=== PATIENT | female | born 2000 | race Two or more races ===

== ENCOUNTER 2019-01-18 18:00 | Emergency (ER) | payer MEDICAID ==
[~2019-01-18] VITALS: Ht 170.2 cm; Wt 97.5 kg
[~2019-01-18 18:00] MED LIST: IBUPROFEN400 MG ORAL; IBUPROFEN600 MG ORAL; NKM
[2019-01-18 18:52] LABS: APPEARANCE,URINE CLEAR; BILIRUBIN, URINE NEGATIVE (NEGATIVE); GLUCOSE, URINE (UA) NEGATIVE (NEGATIVE); KETONES,URINE 1+ (NEGATIVE); LEUKOCYTE ESTERASE ,URINE 3+ (NEGATIVE); NITRITE,URINE NEGATIVE (NEGATIVE); PH,URINE 7 (4.5-8.0); PROTEIN,URINE 1+ (NEGATIVE); UROBILINOGEN,URINE 1 MG/DL (0.0-1.0)
[2019-01-18 18:59] LABS: COLOR,URINE YELLOW
--- NOTE | 2019-01-18 19:09 | Emergency Room Report ---
History of Present Illness General Chief Complaint: Abdominal Pain Source: Patient (Yvette Rodríguez) Present Illness HPI 19-year-old female with no significant past medical history complaining of 2 days of epigastric abdominal pain and 2 bouts of nonbloody emesis. Patient reports that her symptoms started after eating lasagna from a restaurant. Patient denies any bloody emesis, diarrhea, blood in stool. Her last menstrual period was a week ago denies . Denies dysuria, urinary frequency, chest pain, shortness of breath, palpitation, and all other associated symptoms , been able to take oral hydration, denies alcohol intake, smoking, has not taken any medication for alleviating symptoms. Been able to eat without problem. (Yvette oRdríguez) Allergies: Coded Allergies: No Known Allergies (Unverified , 04/29/16) Patient History Past Medical History: see triage record Past Surgical History: unable to obtain Pertinent Family History: none Last Menstrual Period: 12/29/2018 Now: No Immunizations: UTD Reviewed Nursing Documentation: PMH: Agreed; PSxH: Agreed (Yvette Rodríguez) Nursing Documentation-PMH Past Medical History: No Stated History (Yvette Rodríguez) Review of Systems All Other Systems: negative except mentioned in HPI (Yvette Rodríguez) Physical Exam Vital Signs Date Time Temp Pulse Resp B/P (MAP) Pulse Ox O2 Delivery O2 Flow Rate FiO2 01/18/19 18:15 99.3 108 19 131/78 (95) 99 Room Air Sp02 EP Interpretation: reviewed, normal General Appearance: normal inspection, well appearing, no apparent distress Head: normocephalic, atraumatic Eyes: bilateral eye normal inspection, bilateral eye PERRL ENT: normal ENT inspection, hearing grossly normal, normal pharynx Neck: normal inspection, full range of motion, supple, thyroid normal Respiratory: normal inspection, chest non-tender, lungs clear, normal breath sounds, no rhonchi, no wheezing Cardiovascular #1: normal inspection, regular rate, rhythm, no edema, no murmur Gastrointestinal: normal inspection, non tender, soft, no mass, no bruit, no guarding, other - Negative McBurney's and Rovsing Rectal: deferred Genitourinary: no CVA tenderness Musculoskeletal: normal inspection, back normal Neurologic: normal inspection, alert, oriented x3 Psychiatric: normal inspection, judgement/insight normal Skin: no rash, normal turgor Lymphatic: normal inspection, no adenopathy (Yvette Rodríguez) Medical Decision Making PA Attestation Diagnosis and treatment plans were reviewed and discussed with my supervising physician Dr. Ash (Yvette Rodríguez) Medicare Attestation I discussed the care with Yvette OH on 01/18/2019. I agree with the findings and plan as documented in the note. Anne OH discussed abdominal precautions with the patient. (Festus Ash M.D.) Diagnostic Impression: Primary Impression: UTI (urinary tract infection) Additional Impression: Acute gastroenteritis ER Course 19-year-old female with no significant past medical history complaining of 2 days of epigastric abdominal pain and 2 bouts of nonbloody emesis. Patient reports that her symptoms started after eating lasagna from a restaurant. Patient denies any bloody emesis, diarrhea, blood in stool. Her last menstrual period was a week ago denies . Denies dysuria, urinary frequency, chest pain, shortness of breath, palpitation, and all other associated symptoms , been able to take oral hydration, denies alcohol intake, smoking, has not taken any medication for alleviating symptoms. Been able to eat without problem. Ddx considered but are not limited to: UTI, pylonephritis, urinary incontinence , prolapsed bladder, appendicitis, gastroenteritis Vital signs: are WNL, pt. is afebrile H&PE are most consistent with: UTI, acute gastroenteritis ORDERS: UA, urine , Zofran, Macrobid ED INTERVENTIONS: None required at this time. DISCHARGE: At this time pt. is stable for d/c to home. Will provide printed patient care instructions, and any necessary prescriptions. Care plan and follow up instructions have been discussed with the patient prior to discharge. I advised the patient to increase oral hydration and keep a BRAT diet avoiding eating red meat, spicy foods, dairy products. Also follow-up with a primary care provider at this time no more indication for further assessment of the emergency room Leukocytes in UA, white blood cells in urine (Yvette Rodríguez) Last Vital Signs Date Time Temp Pulse Resp B/P (MAP) Pulse Ox O2 Delivery O2 Flow Rate FiO2 01/18/19 18:15 99.3 108 19 131/78 (95) 99 Room Air (Yvette Rodríguez) Disposition: HOME, SELF-CARE Condition: Stable Scripts Nitrofurantoin Monohyd/M-Cryst* (MACROBID 100 MG*) 100 Mg Capsule 100 MG ORAL EVERY 12 HOURS for 7 Days, #14 CAP Prov: Yvette Rodríguez 01/18/19 Ondansetron (Zofran) 4 Mg Tablet 4 MG ORAL Q6H PRN for Nausea & Vomiting, #12 TAB Prov: Yvette Rodríguez 01/18/19 Patient Instructions: Urinary Tract Infection, [id number], Viral Gastroenteritis, Adult Additional Instructions: Take medication as directed follow-up with your primary care provider avoid eating spicy and acidic food, eat bananas, rice, applesauce, piece of toast and avoid dairy products and red meat. Increase fluid intake. Yvette Rodríguez Jan 18, 2019 19:09 Festus Ash M.D. Jan 19, 2019 11:26
[2019-01-18] MEDS ORDERED: NITROFURANTOIN100 M2 ORAL (19:10)
[2019-01-18] MEDS ORDERED: ZOFRAN4 M1 ORAL (19:10)
[2019-01-18 19:17] VITALS: BP 131/78
--- NOTE | 2019-01-18 19:20 | NUR ---
ER DISCHARGE NOTE: Patient is cleared to be discharged per ERMD, pt is aox4, on room air, with stable vital signs. pt was given dc and prescription instructions, pt was able to verbalize understanding pt is able to ambulate with steady gait. pt took all belongings.
[2019-01-18 19:26] VITALS: BP 131/78
== END 2019-01-18 19:22 | disposition home or self-care (01) ==
LOC: EMR 18:30
DX: N39.0 Urinary tract infection, site not specified (principal); K52.9 Noninfective gastroenteritis and colitis, unspecified
CPT/HCPCS: 81001; 81025; 99283

== ENCOUNTER 2019-01-23 20:44 | Emergency (ER) | payer MEDICAID ==
[~2019-01-23] VITALS: Ht 170.2 cm; Wt 97.5 kg
[~2019-01-23 20:44] MED LIST changes: +NITROFURANTOIN100 M2 ORAL; +ZOFRAN4 M1 ORAL
[2019-01-23 21:09] VITALS: BP 111/69
--- NOTE | 2019-01-23 21:09 | NUR ---
ER Nurse Note: Pt came from home c/o n/v/d since 01/18. Pt stated she at [facility] for UTI and stomach infection and taking macrobid. Pt stated antibiotics and noticed diarrhea ever since. Pt a&ox4, VSS, no signs of distress. Will continue to montior.
[2019-01-23] MEDS ORDERED: Ketorolac 30mg Inj IV ONE (21:15)
--- NOTE | 2019-01-23 21:16 | Emergency Room Report ---
History of Present Illness General Chief Complaint: Nausea, Vomiting, and Diarrhea Source: Patient Present Illness HPI This is a 19-year-old female with no past medical history. She presents with chief complaint abdominal pain with nausea vomiting diarrhea. Onset for the last 5 days now. She was here 5 days ago. Urine showed possible urinary tract infection. Patient was given Zofran and Macrobid. Symptoms not helping. She has had persistent nausea vomiting and diarrhea. Pain is crampy in nature. 7 out of 10. Vomiting is nonbloody nonbilious. Diarrhea is watery. No fever chills. Weakness and dizziness with standing. Allergies: Coded Allergies: No Known Allergies (Unverified , 04/29/16) Patient History Past Medical History: see triage record, old chart reviewed Past Surgical History: none Pertinent Family History: none Social History: Denies: smoking Last Menstrual Period: 12/29 Now: No Immunizations: other Reviewed Nursing Documentation: PMH: Agreed; PSxH: Agreed Nursing Documentation-PMH Past Medical History: No Stated History Review of Systems Eye: Denies: eye pain, blurred vision ENT: Denies: ear pain, nose congestion, throat swelling Respiratory: Denies: cough, shortness of breath Cardiovascular: Denies: chest pain, palpitations Gastrointestinal: Reports: abdominal pain, diarrhea, nausea, vomiting Musculoskeletal: Denies: back pain, joint pain Skin: Denies: rash Neurological: Denies: headache, numbness Endocrine: Denies: increased thirst, increased urine Hematologic/Lymphatic: Denies: easy bruising All Other Systems: negative except mentioned in HPI Physical Exam Vital Signs Date Time Temp Pulse Resp B/P (MAP) Pulse Ox O2 Delivery O2 Flow Rate FiO2 01/23/19 20:46 98.4 100 18 111/69 (83) 95 Room Air Vitals normal Sp02 EP Interpretation: reviewed, normal General Appearance: well appearing, no apparent distress, alert Head: normocephalic, atraumatic Eyes: bilateral eye PERRL, bilateral eye EOMI ENT: hearing grossly normal, normal pharynx Neck: full range of motion, supple, no meningismus Respiratory: chest non-tender, lungs clear, normal breath sounds Cardiovascular #1: regular rate, rhythm, no murmur Gastrointestinal: non tender, no mass, no organomegaly, no bruit, non-distended , decreased bowel sounds Musculoskeletal: back normal, gait/station normal, normal range of motion Psychiatric: mood/affect normal Medical Decision Making Diagnostic Impression: Primary Impression: Nausea, vomiting, and diarrhea ER Course Patient with nausea vomiting and diarrhea. This is probably a viral gastroenteritis/hepatitis. She looks well. No evidence of dehydration. No evidence UTI. CT scan showed a 2 cm irregular left ureter stone. I suspect that this is not in the urinary tract system because patient has no hydronephrosis and no pain on that side. Will discharge home with reassurance and systematic treatment. CT/MRI/US Diagnostic Results CT/MRI/US Diagnostic Results : Imaging Test Ordered: CT abdomen and pelvis Impression Read by radiologist. Irregular 2 cm distal left ureter stone. Last Vital Signs Date Time Temp Pulse Resp B/P (MAP) Pulse Ox O2 Delivery O2 Flow Rate FiO2 01/23/19 21:09 98.4 78 18 111/69 95 Room Air Status: improved Disposition: HOME, SELF-CARE Condition: Stable Scripts Ibuprofen* (MOTRIN*) 600 Mg Tablet 600 MG ORAL THREE TIMES A DAY, #30 TAB 0 Refills Prov: Brent Cr MD 01/23/19 Additional Instructions: Fluids. Continue with nausea medication. Stop antibiotics. Follow-up with your doctor in 3 to 5 days if not better. Return if worse. Brent Cr MD Jan 23, 2019 21:16
[2019-01-23 21:40] LABS: BASOPHILS % (AUTO) 1.1 % (0.0-2.0); EOSINOPHILS % (AUTO) 1.8 % (0.0-3.0); HEMATOCRIT 45.6 % (37.0-47.0); HEMOGLOBIN 15.6 G/DL (12.0-16.0); LYMPHOCYTES % (AUTO) 22.1 % (20.0-45.0); MEAN CORPUSCULAR VOLUME 81 FL (80-99); MONOCYTES % (AUTO) 13.2 % (1.0-10.0); NEUTROPHILS % (AUTO) 61.8 % (45.0-75.0); PLATELET COUNT 274 K/UL (150-450); RED BLOOD COUNT 5.66 M/UL (4.20-5.40); RED CELL DISTRIBUTION WIDTH 10.9 % (11.6-14.8); WHITE BLOOD COUNT 8.5 K/UL (4.8-10.8)
[2019-01-23 21:43] LABS: APPEARANCE,URINE SLIGHTLY CLOUDY; BILIRUBIN, URINE NEGATIVE (NEGATIVE); GLUCOSE, URINE (UA) NEGATIVE (NEGATIVE); KETONES,URINE 1+ (NEGATIVE); LEUKOCYTE ESTERASE ,URINE 2+ (NEGATIVE); NITRITE,URINE NEGATIVE (NEGATIVE); PH,URINE 5 (4.5-8.0); PROTEIN,URINE 1+ (NEGATIVE); UROBILINOGEN,URINE 1 MG/DL (0.0-1.0)
[2019-01-23 21:45] LABS: COLOR,URINE YELLOW
[2019-01-23 21:53] LABS: ANION GAP 13 mmol/L (5-15); BLOOD UREA NITROGEN 12 mg/dL (7-18); CALCIUM 9.8 MG/DL (8.5-10.1); CARBON DIOXIDE 22 MMOL/L (21-32); CHLORIDE 104 MMOL/L (98-107); CREATININE 1.3 MG/DL (0.55-1.30); POTASSIUM 3.7 MMOL/L (3.5-5.1); SODIUM 139 MMOL/L (136-145)
[2019-01-23 21:58] LABS: ALANINE AMINOTRANSFERASE 117 U/L (12-78); ALBUMIN/GLOBULIN RATIO 0.9 (1.0-2.7); ALKALINE PHOSPHATASE 87 U/L (46-116); ASPARTATE AMINO TRANSFERASE 67 U/L (15-37); BILIRUBIN,TOTAL 0.5 MG/DL (0.2-1.0)
[2019-01-23] MEDS ORDERED: IBUPROFEN600 MG ORAL (22:36)
[2019-01-23 22:45] VITALS: BP 111/69
--- NOTE | 2019-01-23 22:45 | NUR ---
ER Nurse Note: Pt seen, treated, medically cleared for discharge by ERMD. Discharge instuctions and prescriptions given with repeat verbalization by pt. Emphasized to follow up with primay care provider; take whole course of medication. All orders completed per ERMD orders. Pt a&ox4, VSS, no signs of distress. ID band removed. IV removed; site clean and bandaged. Pt left with all belongings, left with own transportation.
--- NOTE | 2019-01-24 09:28 | Diagnostic Imaging Report ---
Indication: Nausea vomiting diarrhea, abdominal pain Technique: Spiral acquisitions obtained through the abdomen and pelvis. No oral contrast utilized, per emergency room physician request No IV contrast utilized, per referring physician request.. Multiplanar reconstructions were generated. Total dose length product 1023.17 mGycm. CTDIvol(s) 16.82 mGy. Dose reduction achieved using automated exposure control Comparison: None Findings: No evidence of diverticulosis or diverticulitis. The appendix is normal. No small bowel distention. No free or loculated peritoneal gas or fluid is evident. The distal esophagus, stomach, duodenum are unremarkable. Lack of IV contrast limits assessment of solid organs. The liver, gallbladder, bile ducts, pancreas, spleen, adrenals are unremarkable. The left kidney is atrophic. There is suggestion of a solid 2.7 x 3.8 cm mass at the periphery of the left kidney. There is compensatory hypertrophy of the right kidney. There is a 2 cm calcification in the left side of the pelvis which may be related to the distal left ureter. However, the ureter is nondilated. No right renal or ureteral calculi, hydronephrosis, or hydroureter demonstrated. The included lung bases are clear. The bones are unremarkable Impression: Atrophic left kidney. 2 cm calcification in the left side of the pelvis. Suspect dystrophic in nature. Note that relationship of this to the left ureter is uncertain;. Is conceivable that this could represent a large distal ureteral calculus, but absence of hydronephrosis makes this much less likely The above findings are essentially in agreement with the [facility] preliminary report Suggestion of a 2.7 x 3.8 cm mass at the periphery of the left kidney. Evaluation with ultrasound recommended. This was not described on the [facility] preliminary report. It is finding was not reported on [facility] preliminary report, was described to Dr. Cristobal in the emergency room at the time of interpretation The CT scanner at [facility] is accredited by the [employer] and the scans are performed using protocols designed to limit radiation exposure to as low as reasonably achievable to attain images of sufficient resolution adequate for diagnostic evaluation.
== END 2019-01-23 22:45 | disposition home or self-care (01) ==
LOC: EMR 21:14
DX: R11.2 Nausea with vomiting, unspecified (principal); R19.7 Diarrhea, unspecified; R10.9 Unspecified abdominal pain
CPT/HCPCS: 36415; 74176; 80053; 81003; 81025; 83690; 85025; 96361; 96374; 96375; 99284; J1885; J2405